=== PATIENT | female | born 1995 | race Caucasian/White ===

== ENCOUNTER 2016-10-11 08:02 | Emergency (ER) | payer SELFPAY ==
[2016-10-11 09:52] VITALS: BP 120/73
== END 2016-10-11 09:52 | disposition home or self-care (01) ==
LOC: ED 08:02
DX: J03.90 Acute tonsillitis, unspecified (principal)
CPT/HCPCS: J0696; J1100

== ENCOUNTER 2016-10-21 04:26 | Emergency (ER) | payer SELFPAY ==
[~2016-10-21] VITALS: Ht 160 cm; Wt 48.1 kg
[2016-10-21 06:33] VITALS: BP 134/74
== END 2016-10-21 07:00 | disposition home or self-care (01) ==
LOC: ED 04:26
DX: F41.9 Anxiety disorder, unspecified (principal); R10.9 Unspecified abdominal pain; R11.2 Nausea with vomiting, unspecified; Z86.59 Personal history of other mental and behavioral disorders
CPT/HCPCS: J0500; Q0162

== ENCOUNTER 2019-03-05 19:41 | Emergency (ER) | payer OTHER ==
[~2019-03-05] VITALS: Ht 160 cm; Wt 56.2 kg
[2019-03-05 20:14] VITALS: BP 161/91; Ht 160 cm; Wt 56.2 kg
== END 2019-03-05 21:30 | disposition home or self-care (01) ==
LOC: ED 19:41
DX: J45.909 Unspecified asthma, uncomplicated (principal)
CPT/HCPCS: 87804

== ENCOUNTER 2019-10-29 22:08 | Emergency (ER) | payer OTHER ==
[~2019-10-29] VITALS: Ht 162.6 cm; Wt 56.2 kg
[2019-10-29 22:31] VITALS: BP 142/103; Ht 162.6 cm; Wt 56.2 kg
== END 2019-10-29 23:15 | disposition home or self-care (01) ==
LOC: ED 22:08
DX: T23.031A Burn of unspecified degree of multiple right fingers (nail), not including thumb, initial encounter (principal); Y92.89 Other specified places as the place of occurrence of the external cause